=== PATIENT | female | born 1995 | race Caucasian/White ===

== ENCOUNTER 2017-01-21 16:35 | Emergency (ER) | payer OTHER ==
[~2017-01-21] VITALS: Ht 149.9 cm; Wt 77.7 kg
[2017-01-21 16:39] VITALS: BP 131/64; TEMP 98.3
[2017-01-21] MEDS ORDERED: FLEXERIL 1010 MG/TAB PO (17:35)
[2017-01-21 17:46] VITALS: PULSE 81
== END 2017-01-21 17:47 | disposition home or self-care (01) ==
LOC: COL.ER 16:35
DX: M46.1 Sacroiliitis, not elsewhere classified (principal); M54.5 Low back pain
CPT/HCPCS: J1885; J2360

== ENCOUNTER 2017-01-28 16:24 | Emergency (ER) | payer OTHER ==
[~2017-01-28] VITALS: Ht 149.9 cm; Wt 77.3 kg
[~2017-01-28 16:24] MED LIST: FLEXERIL 1010 MG/TAB PO
[2017-01-28 16:28] VITALS: BP 120/81; TEMP 99.6
[2017-01-28 17:11] LABS: PH 5 (5-8); URINE APPEARANCE Hazy; URINE BACTERIA Rare /hpf; URINE BILIRUBIN Negative (NEGATIVE); URINE BLOOD 3+ (NEGATIVE); URINE COLOR Yellow; URINE GLUCOSE Negative (NEGATIVE); URINE KETONE Negative (NEGATIVE); URINE UROBILINOGEN Negative (NEGATIVE)
[2017-01-28] MEDS ORDERED: MEDROL 4MG DOSPA4 MG PO (17:11)
[2017-01-28] MEDS ORDERED: NORCO 325 MG-51 TAB PO (17:11)
[2017-01-28 17:23] VITALS: PULSE 85
== END 2017-01-28 17:23 | disposition home or self-care (01) ==
LOC: COL.ER 16:24
PROVIDERS: Nurse Practitioner
DX: M54.5 Low back pain (principal); M62.830 Muscle spasm of back